=== PATIENT | female | born 1955 | race Caucasian/White ===

== ENCOUNTER 2017-03-24 06:32 | Outpatient (CLI) ==
[2015-01-29 13:58] VITALS: BMI 19.8
[2017-03-24 07:06] LABS: ALBUMIN 3.5 g/dL (3.4-5.0); BILIRUBIN,DIRECT 0.15 mg/dL (0.00-0.30); BILIRUBIN,TOTAL 0.42 mg/dL (0.00-1.20); CHOL/HDL RATIO 5.8 (4.5-5.5); TOTAL PROTEIN 6.7 g/dL (5.8-8.1)
== END 2017-03-24 06:33 | disposition home or self-care (01) ==
LOC: LAB 06:32
PROVIDERS: ATTEND General Practice
DX: E78.00 Pure hypercholesterolemia, unspecified (principal)
CPT/HCPCS: 36415; 80061; 80076

== ENCOUNTER 2018-03-16 12:52 | Outpatient (CLI) ==
[2015-01-29 13:58] VITALS: BMI 19.8
== END 2018-03-16 12:53 | disposition home or self-care (01) ==
LOC: FCC-LAB 12:52
PROVIDERS: ATTEND General Practice
DX: E78.5 Hyperlipidemia, unspecified (principal); I10 Essential (primary) hypertension; Z79.899 Other long term (current) drug therapy
CPT/HCPCS: 36415; 80053; 80061; 81001; 85025

== ENCOUNTER 2018-07-15 12:54 | Outpatient (CLI) ==
[2015-01-29 13:58] VITALS: BMI 19.8
== END 2018-07-15 12:55 | disposition home or self-care (01) ==
LOC: FCC-LAB 12:54
PROVIDERS: ATTEND General Practice
DX: E78.5 Hyperlipidemia, unspecified (principal); I10 Essential (primary) hypertension; Z79.899 Other long term (current) drug therapy
CPT/HCPCS: 36415; 80053; 80061; 85025

== ENCOUNTER 2018-09-08 12:03 | Outpatient (CLI) ==
[2015-01-29 13:58] VITALS: BMI 19.8
== END 2018-09-08 12:04 | disposition home or self-care (01) ==
LOC: RHC-LAB 12:03
PROVIDERS: ATTEND General Practice
DX: E78.5 Hyperlipidemia, unspecified (principal); I10 Essential (primary) hypertension; Z79.899 Other long term (current) drug therapy
CPT/HCPCS: 81001